=== PATIENT | female | born 1995 | race Caucasian/White ===

== ENCOUNTER 2017-04-26 17:47 | Emergency (ER) | payer BC ==
[2017-04-26 17:51] VITALS: BP 149/109; PULSE 85; RESP 18; TEMP 98.8
--- NOTE | 2017-04-26 18:05 | ED ---
General Adult HPI - General Chief complaint: Skin/Abscess/Foreign Body Stated complaint: Bee Sting on Throat Time Seen by Provider: 04/26/17 17:50 Source: patient, RN notes reviewed Mode of arrival: ambulatory Limitations: no limitations - History of Present Illness Initial comments: This is a 22-year-old female who presents emergency department stating that she took a drink of something on her back porch and there was a bee in the drinking so she swallowed and felt as though the bee stung her throat. Patient states she eventually coughed up to be. Patient states about 2 hours ago. Patient denies any shortness of breath or any difficulty swallowing. Patient states she feels that she is having some difficulty burping but no other symptoms at this time per patient denies any rashes or lesions. Patient denies any palpitation. Patient states otherwise she feels fine. Patient did not take any medications prior to arrival. - Related Data Allergies Allergy/AdvReac Type Severity Reaction Status Date / Time No Known Allergies Allergy Verified 04/26/17 17:51 Review of Systems ROS Statement: Those systems with pertinent positive or pertinent negative responses have been documented in the HPI. ROS Other: All systems not noted in ROS Statement are negative. Past Medical History Past Medical History: No Reported History History of Any Multi-Drug Resistant Organisms: None Reported Past Surgical History: No Surgical Hx Reported Past Psychological History: No Psychological Hx Reported Smoking Status: Never smoker Past Alcohol Use History: None Reported Past Drug Use History: None Reported General Exam - General Exam Comments Initial Comments: GENERAL: Patient is well-developed and well-nourished. Patient is nontoxic and well- hydrated and is in no acute distress. EYES: The sclera were anicteric and conjunctiva were pink and moist. Extraocular movements were intact and pupils were equal round and reactive to light. Eyelids were unremarkable. PULMONARY: Unlabored respirations. Good breath sounds bilaterally. No audible rales rhonchi or wheezing was noted. CARDIOVASCULAR: There is a regular rate and rhythm without any murmurs gallops or rubs. Femoral pulses are equal bilaterally NEUROLOGIC: Patient is alert and oriented x3. Cranial nerves II through XII are grossly intact. Motor and sensory are also intact. Normal speech, volume and content. Symmetrical smile. MUSCULOSKELETAL: Normal extremities with adequate strength and full range of motion. PSYCHIATRIC: Normal psychiatric evaluation. Limitations: no limitations Course Vital Signs 04/26/17 17:49 Temperature 98.8 F Pulse Rate 85 Respiratory 18 Rate Blood Pressure 149/109 O2 Sat by Pulse 99 Oximetry Medical Decision Making - Medical Decision Making Patient was in no acute distress. Patient states if she has any difficulty breathing or swallowing she'll return. Disposition Clinical Impression: Bee sting Disposition: HOME SELF-CARE Condition: Good Instructions: Insect Bite or Sting (ED) Referrals: Bonilla Roque DO [Primary Care Provider] - 1-2 days Time of Disposition: 18:01
== END 2017-04-26 18:17 | disposition home or self-care (01) ==
LOC: EC 17:47
DX: T63.441A Toxic effect of venom of bees, accidental (unintentional), initial encounter (principal)
CPT/HCPCS: 99282